=== PATIENT | female | born 1960 | race Caucasian/White ===

== ENCOUNTER 2018-12-05 07:37 | Day surgery (SDC) | payer OTHER, BC ==
[~2018-12-05 07:37] MED LIST: CIPROFLOXACIN 400MG/D5W 200 ML IVPB
[2018-12-05] MEDS: SOD CHLORIDE 0.9% 1,000 ML IV (08:49)
[2018-12-05] MEDS ORDERED: HYDROmorphONE 1 MG/5 ML IV SYRINGE IV (10:00)
[2018-12-05] MEDS ORDERED: OXYCODONE/ACETAMINOPHEN (5/325) TAB PO ×2 (10:00)
[2018-12-05] MEDS ORDERED: ROCURONIUM 50 MG INJ (10:00)
[2018-12-05] MEDS ORDERED: LIDOCAINE 2% (SDV) 5 ML INJ (10:00)
[2018-12-05] MEDS ORDERED: PROPOFOL 200 MG INJ (10:00)
[2018-12-05] MEDS ORDERED: ONDANSETRON 4 MG INJ IV (10:00)
[2018-12-05] MEDS ORDERED: MIDAZOLAM 1 MG/ML 2 ML INJ (10:02)
[2018-12-05] MEDS ORDERED: PROVENTIL HFA 6.7GM INHALER (10:03)
[2018-12-05] MEDS ORDERED: ROPIVACAINE 0.5 % 30 ML VIAL (10:17)
[2018-12-05] MEDS ORDERED: CEFAZOLIN 1 GM INJ (10:30)
[2018-12-05] MEDS ORDERED: ONDANSETRON 4 MG INJ (10:38)
[2018-12-05] MEDS ORDERED: SUGAMMADEX SODIUM 200 MG/2 ML VIAL IV (10:54)
[2018-12-05] MEDS: HYDROmorphONE 1 MG/5 ML IV SYRINGE IV ×3 (11:17→11:47)
[2018-12-05] MEDS ORDERED: HYDROCODONE/APAP (5/325) TAB PO (11:30)
== END 2018-12-05 19:00 | disposition home or self-care (01) ==
LOC: SDS 07:37
DX: K80.10 Calculus of gallbladder with chronic cholecystitis without obstruction (principal)
CPT/HCPCS: 47562; 88304